=== PATIENT | male | born 1950 | race Caucasian/White ===

== ENCOUNTER 2019-05-11 12:12 | Outpatient (CLI) | payer MEDICARE, SELFPAY ==
--- NOTE | ~2019-05-11 | US_ITS ---
EXAMINATION: US venous doppler [facility] DATE: 05/11/2019 12:54 INDICATION: Left lower limb swelling. TECHNIQUE: Grayscale ultrasound images without and with compression and Doppler ultrasound images of the left lower extremity veins were obtained. COMPARISON: None. FINDINGS: The visualized portions of left common femoral vein, profunda (deep) femoral vein, femoral vein, popl iteal vein, peroneal veins, posterior tibial veins, and greater saphenous vein outflow are patent. IMPRESSION: 1. No deep venous thrombosis. Reviewed, dictated and finalized at location A.
== END 2019-05-11 12:13 | disposition home or self-care (01) ==
LOC: ANHIMG 12:22
PROVIDERS: PCP Nurse Practitioner Family; Visit Provider Nurse Practitioner Family
DX: M79.605 Pain in left leg (principal)
CPT/HCPCS: 93971

== ENCOUNTER 2019-05-17 08:52 | Outpatient (CLI) | payer MEDICARE, SELFPAY ==
--- NOTE | ~2019-05-17 | US_ITS ---
EXAMINATION: US venous doppler [facility] EXAM DATE: 05/17/2019 09:30 INDICATION: Left foot edema. TECHNIQUE: Multiple grayscale, color flow and Doppler images of the left lower extremity deep venous system were obtained and reviewed. There is no prior study for comparison. FINDINGS: The left common femoral, femoral and profunda veins demonstrate normal color flow, respirat ory variation, augmentation and compressibility. Compressibility, color flow confirmed within the le ft popliteal, posterior tibial, peroneal, and greater saphenous veins. IMPRESSION: 1. No left lower extremity deep venous thrombosis. Reviewed, dictated and finalized at location A.
--- NOTE | ~2019-05-17 | US_ITS ---
EXAMINATION: US art doppler w jan [facility] EXAM DATE: 05/17/2019 11:15 INDICATION: Discoloration to left lower extremity. Left leg swelling. TECHNIQUE: Segmental pressures and plethysmographic and Doppler waveforms of the brachial and lower e xtremity arteries were obtained. There is no prior study for comparison. FINDINGS: Right and left brachial artery pressures of 129 mm Hg and 129 mm Hg, respectively, are concordant (no rmal difference <= 30 mmHg). The right and left thigh-brachial pressure indices are 1.03, 1.20, resp ectively (normal > 1.2). RIGHT LEG: The ankle-brachial index (JHONNY) is 0.95 (normal >= 0.9-1). The great toe-brachial index (TBI) is 0.78 (normal >= 0.65). The lower extremity ratios, segmental pressure gradients as follows; Proximal superficial femoral artery:- 1.03 (133 mmHg). Distal superficial femoral artery: ----- Could not obtain ( mmHg). Popliteal: 1.23 (159 mmHg). Dorsalis pedis: 0.95 (123 mmHg). Posterior tibial: 0.95 (123 mmHg). (Normal gradients <= 20-30 mmHg between adjacent levels on the same leg or the same levels on the two legs). Arterial waveforms are biphasic through popliteal, monophas ic below. LEFT LEG: The ankle-brachial index (JHONNY) is 0.83 (normal >= 0.9-1). The great toe-brachial index (TBI) is 0.61 (normal >= 0.65). The lower extremity ratios, segmental pressure gradients as follows; Proximal superficial femoral artery:- 1.20 (155 mmHg). Distal superficial femoral artery: ----- 1.29 (166 mmHg). Popliteal: 0.99 (128 mmHg). Dorsalis pedis: 0.83 (107 mmHg). Posterior tibial: 0.77 (99 mmHg). (Normal gradients <= 20-30 mmHg between adjacent levels on the same leg or the same levels on the two legs). Arterial waveforms are biphasic through popliteal, monophas ic below. IMPRESSION: 1. Right ankle-brachial index 0.95, normal. 2. Left ankle-brachial index 0.83, mildly decreased. 3. Segmental pressures as above. Reviewed, dictated and finalized at location A.
== END 2019-05-17 08:53 | disposition home or self-care (01) ==
PROVIDERS: PCP Nurse Practitioner Family; Visit Provider Nurse Practitioner Family
DX: I73.9 Peripheral vascular disease, unspecified (principal); M79.89 Other specified soft tissue disorders
CPT/HCPCS: 93923; 93971

== ENCOUNTER 2019-10-01 07:22 | Outpatient (CLI) | payer MEDICARE, SELFPAY ==
--- NOTE | ~2019-10-01 | MR_ITS ---
EXAMINATION: MR brain/brain stem wo con EXAM DATE: 10/01/2019 08:03 INDICATION: Memory loss. TECHNIQUE: Magnetic resonance imaging (MRI) of the brain/brain stem obtained without contrast. Sagitt al T1, axial diffusion, gradient echo (T2*), T1, T2, FLAIR sequences obtained. There is no prior st udy for comparison. FINDINGS: There is CSF signal intensity cystic space overlying the right temporal lobe. There is smal l amount of increased T2 signal intensity within the underlying right temporal lobe. This is most lik abram chronic or congenital finding, could be arachnoid cyst, small amount of right temporal encephalom alacia. There is mild to moderate microangiopathy and cerebral atrophy. No acute infarction, extra-ax ial collection, brain mass or acute intracranial hemorrhage. No obstructive hydrocephalus. Orbits and soft tissues are unremarkable. Bilateral cataract surgery. Mild ethmoid mucoperiosteal thickening. IMPRESSION: 1. 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 2. Mild to moderate chronic age related findings. Reviewed, dictated and finalized at location A. IMPRESSION: 1. 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 2. Mild to moderate chronic age related findings.
== END 2019-10-01 07:23 | disposition home or self-care (01) ==
LOC: ANHIMG 07:28
PROVIDERS: PCP Nurse Practitioner Family; Visit Provider Psychiatry & Neurology Neurology
DX: R41.3 Other amnesia (principal)
CPT/HCPCS: 70551

== ENCOUNTER 2019-10-23 10:24 | Outpatient (CLI) | payer MEDICARE, SELFPAY ==
--- NOTE | 2019-10-23 11:30 | NEURO_ITS ---
TEST: ELECTROENCEPHALOGRAM DIAGNOSIS: DEMENTIA PATIENT NUMBER: [id number] EEG NUMBER: [id number] RECORDING DATE: 10/23/19 CONDITION OF RECORDING: Awake and drowsy EEG DESCRIPTION: Basic resting occipital frequency consists of moderate amount of fairly well organized low voltage 7-8hz alpha and theta activity mixed with low voltage 15-18hz beta. During drowsiness low voltage beta activity is seen diffusely mixed with waxing and waning posterior alpha and theta activity. Photic stimulation produced normal drive. Nonparoxysmal. Nonfocal. Nonlateralizing. IMPRESSION: No significant abnormalities noted; considering the excessive amount of theta activity clinical correlation recommended as this abnormality could be suggestive of underlying organic or metabolic encephalopathy or the neurodegenerative process. [facility]
== END 2019-10-23 10:25 | disposition home or self-care (01) ==
PROVIDERS: PCP Nurse Practitioner Family; Visit Provider Psychiatry & Neurology Neurology
DX: F03.90 Unspecified dementia, unspecified severity, without behavioral disturbance, psychotic disturbance, mood disturbance, and anxiety (principal)
CPT/HCPCS: 95816

== ENCOUNTER 2024-01-25 01:14 | Day surgery (SDC) | payer MEDICARE, SELFPAY ==
[2024-01-14 09:12] VITALS: BMI 33.2
[2024-01-25 08:00] VITALS: BP 120/74; PULSE 73; RESP 16; TEMP 36.2; O2SAT 95; BMI 32.5
[2024-01-25] MEDS: LACTATED RINGERS 1,000 ML 150 ML IV CONT (08:33)
--- NOTE | 2024-01-25 09:14 | WPDANESEPPF ---
Anes - Initial Pre Proc Eval Procedure: Operation Date: 01/25/24 09:30 Proposed Procedures p Colonoscopy - Mateo Anthony MD Date/Time: 01/25/24 09:14 Surgeon: Mateo Anthony MD Pre Op Diagnosis: fecal abnormalities Patient Data Age: 73 Gender: M Height: 1.83 m Weight: 109 kg Last Vital Signs Temp 97.2 F L 01/25/24 08:00 Pulse 73 01/25/24 08:00 Resp 16 01/25/24 08:00 BP 120/74 01/25/24 08:00 Pulse Ox 95 01/25/24 08:00 O2 Del Method Room Air 01/25/24 08:00 Allergies Allergy/AdvReac Type Severity Reaction Status Date / Time No Known Allergies Allergy Verified 01/25/24 08:17 Home Medications Medication Instructions Recorded Confirmed Type atorvastatin 40 mg tablet 40 mg PO DAILY 02/06/21 01/25/24 History fluticasone fur. 100 mcg-umeclid 1 inh inhalation DAILY 02/06/21 01/25/24 History 62.5 mcg-vilant 25 mcg inhalat.powder (Trelegy Ellipta) guaifenesin 600 mg tablet, 600 mg PO Q12H 02/06/21 01/25/24 History extended release 12 hr (Mucinex) multivitamin (Daily Multi-Vitamin 1 tablet PO DAILY 02/06/21 01/25/24 History tablet) aspirin 81 mg tablet,delayed 81 mg PO DAILY 02/09/23 01/25/24 History release clopidogrel 75 mg tablet 75 mg PO DAILY 02/09/23 01/25/24 History donepezil 5 mg tablet See Rx Instructions .Route 07/07/23 01/25/24 Rx .COMPLEX #90 tabs Results Review: All pre-operative results and documents have been reviewed as part of the pre-operative evaluation. [facility] Surgical History Surgical History H/O right heart catheterization Family History Family History Other Diabetes mellitus Family history of arthritis Hypertension Social History Social History (Updated 02/09/23 @ 14:03 by CHRIS Lopez) Smoking status: Former smoker Tobacco type: cigarettes Alcohol intake: current Drinks per week: 5 Alcohol use details: beer twice a week Substance use: never Substance use type: does not use Lack of Transportation: No Lack of Food: Never True Current Housing: I Have Housing Concerned About Future Housing: No Difficulty Paying Gas/Electric Bills: No Difficulty Paying for Meds: No Currently Unemployed: No Education: High School Diploma/GED Difficulty w/ Childcare or Family Care: No Living arrangements: with family Spiritual care concerns: No Anes - Eval Final PreProcedure Day of Procedure 01/25/24 09:14 Patient weight: obese Airway: Mallampati scale class II Results Review: All pre-operative results and documents have been reviewed as part of the pre-operative evaluation. Informed Consent: The patient's anesthetic plan and its attendant risks and benefits were discussed with the patient/family/POA. Questions were solicited and answers provided to the satisfaction of the patient/family/POA.
--- NOTE | 2024-01-25 09:31 | P.HP_ITS ---
H&P: HPI History of Present Illness Date/Time: 01/25/24 09:31 Chief Complaint: History of colon polyps Narrative: The patient has a history of colonic polyps, the last colonoscopy was 6 years ago Review of Systems Review of Systems: All systems reviewed & are unremarkable except as noted in HPI and below [facility] Surgical History Surgical History H/O right heart catheterization Family History Family History Other Diabetes mellitus Family history of arthritis Hypertension Social History Social History (Updated 02/09/23 @ 14:03 by CHRIS Lopez) Smoking status: Former smoker Tobacco type: cigarettes Alcohol intake: current Drinks per week: 5 Alcohol use details: beer twice a week Substance use: never Substance use type: does not use Lack of Transportation: No Lack of Food: Never True Current Housing: I Have Housing Concerned About Future Housing: No Difficulty Paying Gas/Electric Bills: No Difficulty Paying for Meds: No Currently Unemployed: No Education: High School Diploma/GED Difficulty w/ Childcare or Family Care: No Living arrangements: with family Spiritual care concerns: No Meds Home Medications and Allergies Home Medications Medication Instructions Recorded Confirmed Type atorvastatin 40 mg tablet 40 mg PO DAILY 02/06/21 01/25/24 History fluticasone fur. 100 mcg-umeclid 1 inh inhalation DAILY 02/06/21 01/25/24 History 62.5 mcg-vilant 25 mcg inhalat.powder (Trelegy Ellipta) guaifenesin 600 mg tablet, 600 mg PO Q12H 02/06/21 01/25/24 History extended release 12 hr (Mucinex) multivitamin (Daily Multi-Vitamin 1 tablet PO DAILY 02/06/21 01/25/24 History tablet) aspirin 81 mg tablet,delayed 81 mg PO DAILY 02/09/23 01/25/24 History release clopidogrel 75 mg tablet 75 mg PO DAILY 02/09/23 01/25/24 History donepezil 5 mg tablet See Rx Instructions .Route 07/07/23 01/25/24 Rx .COMPLEX #90 tabs Allergies Allergy/AdvReac Type Severity Reaction Status Date / Time No Known Allergies Allergy Verified 01/25/24 08:17 Vital Signs Vital Signs - 24 hr 01/25/24 08:00 Temperature 97.2 F L Pulse Rate 73 Respiratory Rate 16 Blood Pressure 120/74 Pulse Oximetry 95 Oxygen Delivery Room Air Exam Const: General: cooperative and healthy appearing Resp: Effort & Inspection: normal respiratory effort and able to speak in complete sentences Auscultation: clear to auscultation bilaterally Cardio: Rate: regular rate Rhythm: regular rhythm GI: Inspection: normal to inspection GI Palp: No No hepatosplenomegaly present Auscultation: normal bowel sounds Rectal Exam: deferred Skin: General skin exam: normal color Psych: Appearance: grossly normal Mental Status: mental status grossly normal Assessment and Plan Assessment and plan (1) History of colonic polyps: Code(s): Z86.0100 - Personal history of colon polyps, unspecified Status: Acute Assessment and Plan: The patient is deemed a good candidate for the procedure. Consent signed. Will proceed.
[2024-01-25 10:17] VITALS: BP 115/55; PULSE 60; RESP 15; O2SAT 99
[2024-01-25 10:27] VITALS: BP 121/61; PULSE 68; RESP 17; O2SAT 99
--- NOTE | 2024-01-25 10:27 | P.HP_ITS ---
H&P: HPI History of Present Illness Date/Time: 01/25/24 10:27 Chief Complaint: see prior H and P Narrative: Review of Systems Review of Systems: All systems reviewed & are unremarkable except as noted in HPI and below REPLACED BY [facility] Surgical History Surgical History H/O right heart catheterization Family History Family History Other Diabetes mellitus Family history of arthritis Hypertension Social History Social History (Updated 02/09/23 @ 14:03 by CHRIS Lopez) Smoking status: Former smoker Tobacco type: cigarettes Alcohol intake: current Drinks per week: 5 Alcohol use details: beer twice a week Substance use: never Substance use type: does not use Lack of Transportation: No Lack of Food: Never True Current Housing: I Have Housing Concerned About Future Housing: No Difficulty Paying Gas/Electric Bills: No Difficulty Paying for Meds: No Currently Unemployed: No Education: High School Diploma/GED Difficulty w/ Childcare or Family Care: No Living arrangements: with family Spiritual care concerns: No Meds Home Medications and Allergies Home Medications Medication Instructions Recorded Confirmed Type atorvastatin 40 mg tablet 40 mg PO DAILY 02/06/21 01/25/24 History fluticasone fur. 100 mcg-umeclid 1 inh inhalation DAILY 02/06/21 01/25/24 History 62.5 mcg-vilant 25 mcg inhalat.powder (Trelegy Ellipta) guaifenesin 600 mg tablet, 600 mg PO Q12H 02/06/21 01/25/24 History extended release 12 hr (Mucinex) multivitamin (Daily Multi-Vitamin 1 tablet PO DAILY 02/06/21 01/25/24 History tablet) aspirin 81 mg tablet,delayed 81 mg PO DAILY 02/09/23 01/25/24 History release clopidogrel 75 mg tablet 75 mg PO DAILY 02/09/23 01/25/24 History donepezil 5 mg tablet See Rx Instructions .Route 07/07/23 01/25/24 Rx .COMPLEX #90 tabs Allergies Allergy/AdvReac Type Severity Reaction Status Date / Time No Known Allergies Allergy Verified 01/25/24 08:17 Vital Signs Vital Signs - 24 hr 01/25/24 08:00 01/25/24 10:17 01/25/24 10:27 Temperature 97.2 F L Pulse Rate 73 60 68 Respiratory Rate 16 15 17 Blood Pressure 120/74 115/55 L 121/61 Pulse Oximetry 95 99 99 Oxygen Delivery Room Air Room Air Room Air Exam Const: General: cooperative and healthy appearing Resp: Effort & Inspection: normal respiratory effort and able to speak in complete sentences Auscultation: clear to auscultation bilaterally Cardio: Rate: regular rate Rhythm: regular rhythm GI: Inspection: normal to inspection GI Palp: No No hepatosplenomegaly present Auscultation: normal bowel sounds Rectal Exam: deferred Skin: General skin exam: normal color Psych: Appearance: grossly normal Mental Status: mental status grossly normal
[2024-01-25 10:37] VITALS: BP 126/85; PULSE 62; RESP 16; O2SAT 100
== END 2024-01-25 11:00 | disposition home or self-care (01) ==
PROVIDERS: Visit Provider Internal Medicine Gastroenterology
PROC: 0DJD8ZZ Inspection of Lower Intestinal Tract, Via Natural or Artificial Opening Endoscopic (ICD-10-PCS; CPT 45378; principal; 2024-01-25 09:30)
DX: Z12.11 Encounter for screening for malignant neoplasm of colon (principal); D12.5 Benign neoplasm of sigmoid colon; D12.3 Benign neoplasm of transverse colon; D12.2 Benign neoplasm of ascending colon; K57.30 Diverticulosis of large intestine without perforation or abscess without bleeding; E66.9 Obesity, unspecified; Z68.32 Body mass index [BMI] 32.0-32.9, adult; Z79.51 Long term (current) use of inhaled steroids; Z79.82 Long term (current) use of aspirin; Z79.02 Long term (current) use of antithrombotics/antiplatelets; Z98.890 Other specified postprocedural states; Z98.61 Coronary angioplasty status; Z87.891 Personal history of nicotine dependence
CPT/HCPCS: 45385; 45380; 45381; 88305; J2003; J2704; J7120

== ENCOUNTER 2024-02-10 09:35 | Outpatient (CLI) | payer MEDICARE, SELFPAY ==
[2024-02-10 11:05] LABS: Basophils Absolute Auto 0.1 K/mm3 (0.0-0.1); Basophils Percent Auto 0.7 % (0.2-1.2); Eosinophils Absolute Auto 0.3 K/mm3 (0-0.3); Eosinophils Percent Auto 3.9 % (0-4.4); Hematocrit 44.1 % (42.0-52.0); Hemoglobin 13.8 g/dL (14.0-18.0); Immature Granulocyte Absolute 0.03 K/mm3 (0.00-0.031); Immature Granulocyte Percent A 0.4 % (0-0.5); Lymphocytes Absolute Auto 1.82 K/mm3 (0.9-3.2); Lymphocytes Percent Auto 26.5 % (18.3-44.2); Mean Corpuscular HGB Conc 31.3 g/dl (32-36); Mean Corpuscular Hemoglobin 32.2 pg (26-34); Mean Platelet Volume 9.9 fl (7.4-10.4); Monocytes Absolute Auto 0.8 K/mm3 (0.1-0.6); Monocytes Percent Auto 11.5 % (2.6-8.5); Neutrophils Absolute Auto 3.9 K/mm3 (1.3-6.7); Platelet Count Result 207 k/mm3 (150-375); Red Blood Count 4.28 M/mm3 (4.6-6.20); Red Cell Distribution Width 13.9 % (11.5-14.5); White Blood Count 6.9 K/mm3 (4.5-10.0)
== END 2024-02-10 09:36 | disposition home or self-care (01) ==
PROVIDERS: Visit Provider Internal Medicine Gastroenterology
DX: Z12.11 Encounter for screening for malignant neoplasm of colon (principal); Z86.0100 Personal history of colon polyps, unspecified
CPT/HCPCS: 36415; 85025

== ENCOUNTER 2024-08-01 08:44 | Outpatient (CLI) | payer MEDICARE, SELFPAY ==
--- NOTE | ~2024-08-01 | US_ITS ---
EXAMINATION: US arterial duplex LE DATE: 08/01/2024 09:45 INDICATION: Peripheral arterial occlusive disease to the left lower limb with resting pain TECHNIQUE: Multiple grayscale and Doppler ultrasound images of the arteries of the bilateral lower li mbs were obtained. COMPARISON: None FINDINGS: There is some shadowing calcified atherosclerotic plaque at the right common femoral and popliteal ar teries without hemodynamically significant stenosis. There are normal triphasic waveforms with brisk systolic upstrokes at the right common femoral, profunda femoral, superficial femoral and popliteal, posterior tibial, anterior tibial and peroneal arteries. Biphasic waveform with brisk systolic upstro ke at the right dorsalis pedis artery. There is some additional shadowing calcified atherosclerotic plaque also without hemodynamically sign ificant stenosis at the left common femoral, popliteal and posterior tibial arteries. There are yaritza l triphasic waveforms with brisk systolic upstrokes at the left common femoral, profunda femoral, sup erficial femoral, popliteal, posterior tibial and peroneal arteries. Biphasic waveforms with brisk sy stolic upstrokes at the left anterior tibial and dorsalis pedis arteries with relatively prominent as ymmetric decreased peak systolic velocities in both arteries relative to the contralateral right ante rior tibial and dorsalis pedis arteries as well as the posterior tibial and peroneal arteries at the left calf which suggests a possible nonvisualized more proximal stenosis. IMPRESSION: 1. Scattered atherosclerotic plaque with no evident hemodynamically significant stenosis in the right lower limb. 2. Scattered atherosclerotic plaque in the left lower limb with relatively decreased peak systolic ve locities in the left anterior tibial and dorsalis pedis arteries which despite the retained brisk sys tolic upstroke to the biphasic waveforms at both arteries suggests a possible more proximal flow-limi ting stenosis. Reviewed, dictated and finalized at location [facility]. IMPRESSION: 1. Scattered atherosclerotic plaque with no evident hemodynamically significant stenosis in the right lower limb. 2. Scattered atherosclerotic plaque in the left lower limb with relatively decr eased peak systolic velocities in the left anterior tibial and dorsalis pedis a rteries which despite the retained brisk systolic upstroke to the biphasic wave forms at both arteries suggests a possible more proximal flow-limiting stenosis .
--- OUTSIDE RECORDS SUMMARY | 2024-08-01 08:55 | XMS_ITS | Clinical Summary ---
Author Organization [facility] Address [address] [place] [address] Care Team Providers Care Water System Operator Name Role Phone Viky Mana Primary Care Provider [phone] Source Comments [facility],non-owned Affiliates and Associated Physician Practices is amultiple site organization consisting of ambulatory clinics and hospital sitesin [place], [place], [place] and [place]. This disclosure is being madepursuant to the Care Everywhere program and may not contain all information available regarding this patient. Last updated 17.[facility] Allergies No known active allergies Medications * Be aware that medications may not be up to date on this document. Alwaysverify current medications with the patient. clopidogrel (plaVIX) 75 MG tablet Take 1 (one) tablet by mouth once daily 4 Active Trelegy Ellipta 200-62.5-25 MCG/ACT inhaler INHALE ONE PUFF ONCE DAILY 4 Active guaiFENesin (Mucus Relief Chest Congestion) 400 MG tablet Mucus Relief 400 mg tablet Active donepezil (Aricept) 5 MG tablet Take 1 (one) tablet by mouth once daily Active cyanocobalamin (Vitamin B-12) 1000 MCG tablet Take 1 (one) tablet by mouth once daily Active aspirin (Aspirin) 81 MG chew tablet Take 1 (one) tablet by mouth once daily Active Boswellia-Gluc osamine-Vit D (OSTEO BI-FLEX ONE PER DAY PO) Active albuterol HFA (Proventil; Ventolin; Proair) 108 (90 Base) MCG/ACT inhaler INHALE 2 PUFFS BY MOUTH EVERY SIX HOURS NEEDED Active albuterol (Proventil;Rufus tolin) (2.5 MG/3ML) 0.083% nebulizer solution INHALE 1 VIAL EVERY 4-6 HRS NEEDED 4 Active atorvastatin (Lipitor) 40 MG tablet atorvastatin 40 mg tablet 3 Active Glucosamine HCl 500 MG glucosamine HCl unspecified unspecified Active Multiple Vitamin (Multi-Vitamin s) TABS multivitamin tablet Active clobetasol (Temovate) 0.05 % solution Apply to affected area at bedtime 5 Active acetaminophen (Tylenol) 500 MG tablet Take 2 (two) tablets by mouth every 6 hours as needed for Fever or Pain Maximum allowable Acetaminophen amount = 4 Grams (4000 mg) / 24 hours. 30 tablet 5 Active oxyCODONE, immediate release, (Roxicodone) 5 MG tabletIndicati ons:High grade dysplasia in colonic adenoma Take 1 (one) tablet by mouth every 4 hours as needed 8 tablet 05/26/2024 2:36 PM CDT 5 Active Additional Information Patient not taking.Reason: Patient adjusted, Reported on 06/15/2024 escitalopram (Lexapro) 10 MG tablet Take 1 (one) tablet by mouth once daily 5 Active memantine (Namenda Titration Stephon) kit TAKE DIRECTED PER PACKAGE 5 Active Active Problems Problem Noted Date Diagnosed Date High grade dysplasia in colonic adenoma 05/25/19 25 Encounters Date Type Department Care Team Description 06/15/2024 12:00 PM CDT Office Visit [facility] - General Surgery [address] [facility] [facility] [place] [address] Becca Miles MD Malignant neoplasm of ascending colon (HCC) (Primary Dx) 06/15/2024 Travel 06/01/2024 Travel 05/24/2024 9:01 AM CDT Anesthesia Event [facility] [address] [place] [address] Ashley Saucedo MD Hunsaker, Madelyn, MD 05/24/2024 8:45 AM CDT - 05/24/2024 12:57 PM CDT Surgery [facility] [address] [place] [address] Becca Miles MD Robotic ascending colectomy 05/24/2024 7:14 AM CDT - 05/26/2024 5:34 PM CDT Hospital Encounter [facility] 7S ACUTE [address] [place] [address] Becca Miles MD Surgery General Discharge Disposition: [place] [facility] [place] 05/17/2024 Orders Only [facility] - General Surgery [address] [facility] [place] [address] Becca Miles MD Tubulovillous adenoma of colon 05/04/2024 12:47 PM GLASS TUBE BENDER - 05/04/2024 11:59 PM [employer]ER Hospital Encounter [facility] LAB OP DRAW STATION [address] [place] [address] Becca Miles MD Discharge Disposition: Home or Self Care 05/04/2024 11:48 AM GLASS TUBE BENDER - 05/04/2024 12:46 PM [employer] T[employer] BENDER Hospital Encounter [facility] PAT [address] [place] [address] Becca Miles MD Discharge Disposition: Home or Self Care 05/04/2024 10:18 AM GLASS TUBE BENDER - 05/04/2024 11:47 AM GLASS TUBE BENDER Hospital Encounter [facility] CAT SCAN [address] [place] [address] Becca Miles MD Discharge Disposition: Home or Self Care 05/04/2024 Travel from Last 3 Months Social History Tobacco Use Types Packs/Day Years Used Date Smoking Tobacco: Former Cigarettes Q uit: 2017 Smokeless Tobacco: Never Tobacco Cessation:Counseling Given: No Alcohol Use Standard Drinks/Week Comments Yes 24 (1 standard drink = 0.6 oz pu re alcohol) AUDIT-C Answer Date Recorded Q1: How often do you have a drink containing alc ohol? 2-3 times a week 05/24/2024 Q2: How many drinks containi ng alcohol do you have on a typical day when you are drinking? 10 or more 05/24/2024 Q3: How often do you have si x or more drinks on one occasion? Weekly 05/24/2024 Overall Financial Resource Strain (CARDIA) Answe r Date Recorded How hard is it for you to pa y for the very basics like food, housing, medical care, and heating? Not very hard 05/24/2024 [facility] [place] [facility] Occupat ional [facility] - Occupational Stress Questionnaire Answer Date Recorded Do you feel stress - tense, restless, nervous, or anxious, or unable to sleep at night because your mind is troubled all the time - these days? Only a little 05/24/2024 Hunger Vital Sign Answer Date Recorded Within the past 12 months, y ou worried that your food would run out before you got the money to buy more. Never true 05/25/19 25 Within the past 12 months, t he food you bought just didn't last and you didn't have money to get more. Never true 05/24/2024 PRAPARE - Transportation Answer Date Re corded In the past 12 months, has l ack of transportation kept you from medical appointments or from getting medications? No 04/30 In the past 12 months, has l ack of transportation kept you from meetings, work, or from getting things needed for daily living? No 05/24/2024 Housing Stability Vital Sign Answer Sagar e Recorded In the last 12 months, was t here a time when you were not able to pay the mortgage or rent on time? No 05/24/2024 In the past 12 months, how m any times have you moved where you were living? 0 05/24/2024 At any time in the past 12 m [facility], were you homeless or living in a alf (including now)? No 05/24/2024 Sex and Gender Information Value Date Recorded Sex Assigned at Not on file Legal Sex Male 12:17 PM GLASS TUBE BENDER Gender Identity Not on file Sexual Orientation Not on file Last Filed Vital Signs Vital Sign Reading Time Taken Comments Blood Pressure 112/73 06/15/2024 11:40 AM CDT Pulse 73 06/15/2024 11:40 AM CDT Temperature 36.7 C (98 F) 06/15/2024 11:40 AM CDT Respiratory Rate 20 05/26/2024 4:04 PM CDT Oxygen Saturation 92% 06/15/2024 11:40 AM CDT Inhaled Oxygen Concentration 21% 05/26/2024 8 :50 AM CDT Weight 113.4 kg (250 lb) 06/15/2024 11:40 AM CDT Height 182.9 cm (6') 06/15/2024 11:40 AM CDT Body Mass Index 33.91 06/15/2024 11:40 AM CDT Plan of Treatment Upcoming Encounters Date Type Department Care Team (Latest Contact Info) Description 09/06/2024 10:00 AM CDT Hospital Encounter [facility] ENDOSCOPY [address] [place] [phone] Nigel Holloway MD [address] [place] [address] [address] [place] [address] Surgery General 09/06/2024 10:00 AM CDT - 09/06/2024 11:00 AM CDT Surgery [facility] ENDOSCOPY [address] [place] [phone] Nigel Holloway MD [address] [place] [address] [address] [place] [phone] COLONOSCOPY DIAGNOSTIC 09/14/2024 12:00 PM CDT Office Visit [facility] - General Surgery [address] [place] [address], [place] [phone] Becca Miles MD [address] [place] [address] [address] [place] [phone] Scheduled Procedures Name Priority Associated Diagnoses Date/Ti me COLONOSCOPY DIAGNOSTIC Polyp of colon, unspecified part of colon, unspecified type 09/06/2024 10:00 AM CDT Health Maintenance Due Date Last Done Comments CT COLONOGRAPHY - COLON CA SCREENING 1949 FIT - COLON CA SCREENING 1950 FLEX SIG - COLON CA SCREENING 1950 MEDICARE AWV 12 MONTHS 1949 HEPATITIS C SCREENING 06/30/1967 DTAP/TDAP/TD VACCINES (1 - Tdap) 1968 PNEUMOCOCCAL VACCINE 50+ (1 of 1 - PCV) 07/05/1999 ZOSTER VACCINE (1 of 2) 07/05/1999 COVID-19 VACCINE (2023-2 5 season) 2023 DEPRESSION SCREENING 03/01/2024 Respiratory Syncytial Virus (RSV) Vaccine Pt: or over 60 yrs (1 - 1-dose 75+ series) 2024 INFLUENZA VACCINE (Season Ended) 2024 COLOGUARD (AGES 45-75) - COL ON CA SCREENING 11/20/2026 11/21/2023 COLON MONITORING 02/27/2034 02/28/2024, 02/28/2024 COLONOSCOPY - COLON CA SCREENING 02/27/2034 02/28/2024, 02/28/2024 Colorectal Cancer Screening 02/27/2034 HEPATITIS B VACCINE Aged Out No longe r eligible based on patient's age to complete this topic HIB VACCINE Aged Out No longer eligi ble based on patient's age to complete this topic HPV VACCINE Aged Out No longer eligi ble based on patient's age to complete this topic MENINGOCOCCAL (Group B) VACCINE SHARED DECISION-MAKING Aged Out No longer eligible based on patient's age to complete this topic MENINGOCOCCAL GROUPS A/C/Y/W VACCINE Aged Out No longer eligible b ased on patient's age to complete this topic Procedures Procedure Name Priority Date/Time Associated Diagnosis Comments CBC W AUTO DIFFERENTIAL AM Draw 05/26/2024 4:18 PM CDT BASIC METABOLIC PANEL (CALCIUM TOTAL) AM Draw 05/26/2024 6:23 AM CDT MAGNESIUM BLOOD Routine 05/26/2024 6:23 AM CDT CBC W AUTO DIFFERENTIAL AM Draw 05/26/2024 5:34 AM CDT PHOSPHORUS BLOOD Routine 05/26/2024 5:34 AM CDT PHOSPHORUS BLOOD Routine 05/25/2024 4:41 AM CDT MAGNESIUM BLOOD AM Draw 05/25/2024 4:41 AM CDT BASIC METABOLIC PANEL (CALCIUM TOTAL) AM Draw 05/25/2024 4:41 AM CDT CBC W AUTO DIFFERENTIAL AM Draw 05/25/2024 4:41 AM CDT PATHOLOGY TISSUE Routine 05/24/2024 11:5 3 AM CDT Tubulovillous adenoma of colon ENDOTRACHEAL TUBE NOTE Routine 05/24/2024 9:45 AM CDT MS CLOSE CHEST AFTER DRAINAGE 05/24/2024 8:31 AM CDT Tubulovillous adenoma of colon Case Notes Reviewed 05/17 / Resident to Assist Special Needs ERAS MS LAPARSCOPIC PARTIAL COLECTOMY 05/24/2024 8:31 AM CDT Tubulovillous adenoma of colon Case Notes Reviewed 05/17 / Resident to Assist Special Needs ERAS MS LAPARSCOPIC PARTIAL COLECTOMY 05/24/2024 8:31 AM CDT Tubulovillous adenoma of colon Case Notes Reviewed 05/17 / Resident to Assist Special Needs ERAS TYPE + SCREEN PANEL STAT 05/24/2024 8 :02 AM CDT Polyp of ascending colon, unspecified type TYPE + SCREEN PANEL Routine 05/04/2024 1 :16 PM [employer] TUBE BENDER Polyp of ascending colon, unspecified type BASIC METABOLIC PANEL (CALCIUM TOTAL) Routine 05/04/2024 1:16 PM [employer] TUBE BENDER Polyp of ascending colon, unspecified type CBC W/O DIFFERENTIAL Routine 05/04/2024 1:16 PM GLASS TUBE BENDER Polyp of ascending colon, unspecified type CT ABDOMEN PELVIS W CONTRAST Routine 05/04/2024 10:47 AM GL[employer] TUBE BENDER Tubulovillous adenoma of colon ENDOSCOPY, COLON, DIAGNOSTIC Routine 02/28/2024 1:37 PM GLASS TUBE BENDER from Last 3 Months or Most Recently Relevant to Health Maintenance Results * (ABNORMAL) CBC W AUTO DIFFERENTIAL (05/26/2024 4:18 PM CDT) Only the most recent of3 resultswithin the time period is included. WBC 10.4 4.0 - 10.7 x10E9/L 05/26/2024 4:35 PM [facility] RBC Count 3.93(L) 4.30 - 5.80 x10E12/L 05/26/2024 4:35 PM [facility] Hemoglobin 12.3(L) 13.3 - 17.5 g/dL 05/26/2024 4:35 PM [facility] Hematocrit 38.5(L) 38.7 - 51.1 % 05/26/2024 4:35 PM [facility] MCV 98.0 80.0 - 98.0 fL 05/26/2024 4:35 PM [facility] MCH 31.3 26.7 - 33.6 pg 05/26/2024 4:35 PM [facility] MCHC 31.9 31.7 - 36.3 g/dL 05/26/2024 4:35 PM [facility] RDW-CV 14.3 11.3 - 14.8 % 05/26/2024 4:35 PM [facility] Platelet Count 185 150 - 420 x10E9/L 05/26/2024 4:35 PM [facility] MPV 10.2 7.8 - 11.4 fL 05/26/2024 4:35 PM [facility] Neutrophil % 60.7 41.0 - 74.0 % 05/26/2024 4:35 PM [facility] Lymphocyte % 21.4 17.0 - 47.0 % 05/26/2024 4:35 PM [facility] Monocyte % 13.0(H) 3.0 - 11.0 % 05/26/2024 4:35 PM [facility] Eosinophil % 4.1 0.0 - 7.0 % 05/26/2024 4:35 PM [facility] Basophil % 0.6 0.0 - 1.6 % 05/26/2024 4:35 PM [facility] Immature Granulocytes % 0.2 0.0 - 1.0 % 05/26/2024 4:35 PM [facility] Neutrophil Absolute 6.29 1.60 - 7.50 x10E9/L 05/26/2024 4:35 PM [facility] Lymphocyte Absolute 2.21 1.00 - 4.40 x10E9/L 05/26/2024 4:35 PM [facility] Monocyte Absolute 1.35(H) 0.15 - 1.00 x10E9/L 05/26/2024 4:35 PM [facility] Eosinophil Absolute 0.42 0.00 - 0.60 x10E9/L 05/26/2024 4:35 PM [facility] Basophil Absolute 0.06 0.00 - 0.13 x10E9/L 05/26/2024 4:35 PM [facility] Blood BLOOD SPECIMEN / Unknown Lab Venipuncture / Unknown 05/26/2024 4:18 PM CDT 05/26/2024 4:30 PM CDT us Becca Miles MD LAB - HEMATOLOGY ORDERABLE S Final Result [facility] [address] [place] [address], [facility] [phone] * (ABNORMAL) BASIC METABOLIC PANEL (CALCIUM TOTAL) (05/26/2024 6:23 AM CDT) Only the most recent of3 resultswithin the time period is included. BUN 16 7 - 26 mg/dL 05/26/2024 7:04 AM [facility] Creatinine 0.84 0.71 - 1.16 mg/dL 05/26/2024 7:04 AM [facility] Sodium 144 136 - 145 mmol/L 05/26/2024 7:04 AM [facility] Potassium 4.0 3.5 - 4.5 mmol/L 05/26/2024 7:04 AM [facility] Chloride 112(H) 98 - 107 mmol/L 05/26/2024 7:04 AM [facility] CO2 26 22 - 29 mmol/L 05/26/2024 7:04 AM [facility] Glucose 106(H) 70 - 99 mg/dL 05/26/2024 7:04 AM T [facility] Calcium 8.8 8.4 - 10.2 mg/dL 05/26/2024 7:04 AM [facility] Anion Gap 6 6 - 16 05/26/2024 7:04 AM [facility] BUN/Creatinine Ratio 19 7 - 23 05/26/2024 7:04 AM [facility] Osmolality Calculated 300(H) 275 - 295 mOsm/kg 05/26/2024 7:04 AM [facility] eGFR by CKD-EPI >90 >=90 mL/min/1.7 3 m2 05/26/2024 7:04 AM [facility] Blood BLOOD SPECIMEN / Unknown Lab Venipuncture / Unknown 05/26/2024 6:23 AM CDT 05/26/2024 6:33 AM CDT us Becca Miles MD LAB - CHEMISTRY ORDERABLES Final Result Performing Organization Address City/[facility]/ZIP Co de Phone Number [address] [address], [facility] [phone] * MAGNESIUM BLOOD (05/26/2024 6:23 AM CDT) Only the most recent of2 resultswithin the time period is included. Magnesium 1.9 1.6 - 2.6 mg/dL 05/26/2024 7:04 AM T [facility] Blood BLOOD SPECIMEN / Unknown Lab Venipuncture / Unknown 05/26/2024 6:23 AM CDT 05/26/2024 6:33 AM CDT us Becca Miles MD LAB - CHEMISTRY ORDERABLES Final Result [address] [address], [facility] [phone] * PHOSPHORUS BLOOD (05/26/2024 5:34 AM CDT) Only the most recent of2 resultswithin the time period is included. Phosphorus 3.0 2.8 - 5.1 mg/dL 05/26/2024 6:10 AM CDT [facility] Blood BLOOD SPECIMEN / Unknown Venipuncture / Unknown 05/26/2024 5:34 AM CDT 05/26/2024 5:42 AM CDT us Becca Miles MD LAB - CHEMISTRY ORDERABLES Final Result Performing Organization Address [facility]/State/ZIP Co de Phone Number [facility] [address] [place] [address], [facility] [phone] * PATHOLOGY TISSUE (05/24/2024 11:53 AM CDT) Case Report Surgical Pathology Report Case: [id number] Authorizing Provider: Becca Miles MD Collected: 05/24/2024 11:53 AM Ordering Location: [facility] Received: 05/24/2024 01:25 PM Pathologist: Olga Finney MD Specimen: Colon Ascending, ASCENDING COLON 05/26/2024 2:55 PM CDT [facility] Final Diagnosis Large/small intestine, ascending colon, resection (A): - Tubular adenoma (5.5 cm) with multifocal high grade dysplasia and focal intramucosal carcinoma, 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 - Separate sessile serrated lesion/adenoma and multiple tubular adenomas involving the colon - Separate foci of fibrosis and reactive changes (biopsy site scars x2) without evidence of malignancy or residual adenoma - Appendix with no histopathologic abnormality - Terminal ileum with no histopathologic abnormality Lymph nodes, pericolonic, resection (A): - No evidence of malignancy in nineteen lymph nodes (0/19) 05/26/2024 2:55 PM CDT [facility] PATHOLOGY LAB at 1455 CDT Microscopic Description and Comment Histologic sections of the large flat lesion in the cecum (entirely submitted for histologic examination) show a laterally spreading tubular adenoma with multiple foci of high-grade dysplasia and even areas with complex architecture and invasion of the lamina propria and muscularis mucosae, consistent with focal intramucosal carcinoma. These foci are small and discontinuous, making an exact measurement difficult to ascertain. In some areas, the adenoma herniates into the underlying lymphoid tissue, and a small area of high-grade dysplasia/intramucosa l carcinoma does this as well, although no desmoplastic tissue response as an indicator of submucosal invasion is seen. As such, the tumor stage is considered pTis. There is no obvious lymphovascular space invasion, and none of the 19 pericolonic lymph nodes has metastatic tumor. Nearby but separate from this large tubular adenoma is a smaller sessile serrated lesion/adenoma, and scattered even smaller tubular adenomas (without high-grade dysplasia or intramucosal carcinoma) are also seen. Two distinct scarred areas were also found, consistent with prior piecemeal endomucosal resections, but residual adenoma is not seen associated with the scar sites. 05/26/2024 2:55 PM [facility] Clinical History The patient is a 73-year-old man with a cecal polyp and reducible umbilical hernia. Operative procedure: Robotic ascending colectomy and hernia repair 05/26/2024 2:55 PM T [facility] Gross Description The requisition and specimen(s) are identified with the patient's name, Virgilio Washington. Received in formalin, specimen A, is a right hemicolectomy consisting of terminal ileum (4.5 x 0.8 cm diameter), cecum (6.0 x 4.5 cm diameter), ascending colon (12.0 x 3.5 cm diameter), attached appendix (5.5 x 0.6 cm diameter) and abundant edematous attached mesentery up to 9.0 cm in thickness. The serosa is matos-pink focally hemorrhagic and edematous with dilated vasculature and ascending segment is predominantly obscured by creeping fat. Opening shows three scattered sessile polyps ranging from 0.2-0.6 cm; the closest polyp is 7.0 cm to terminal ileum margin and closest polyp is 5.5 cm to distal colon margin. Within the cecum are two flat irregular matos-white lesions; the smaller lesion (#1) is 1.0 x 0.8 and the larger lesion (#2) is 5.5 x 2.0 cm which are 1.0 cm apart (proximal to distal). The larger lesion extends anteriorly and proximally to the ileocecal valve and is 1.0 cm from the appendiceal orifice, 4.5 cm from the proximal terminal ileum margin, 4.5 cm from the mesenteric margin and 15.0 cm from the distal colon margin. Additionally are two firm, stellate biopsy sites in the cecum and ascending colon; the cecal biopsy site is 2.0 x 0.8 cm and is 3.5 cm from larger lesion, and the ascending biopsy site is 1.5 x 0.7 cm and is 5.5 cm to the distal colon margin. The remaining mucosa is matos-pink with normal folds. The appendiceal wall ranges from 0.1-0.3 cm with matos-pink edematous mucosa. The lumen is focally dilated containing green-brown purulent material. There are no gross lesions within the appendix. Within the mesentery are scattered matos-pink to matos-white lymph nodes ranging from 0.2-0.8 cm with matos-white smooth cut surface. There are no additional gross lesions. Batteryman sections are submitted as follows: A1-proximal terminal ileum margin, en face A2-distal colon margin, en face A3-mesenteric margin, en face A4-appendix, bisected tip, orifice and central cross-section [id number] #1, entire (A7 lesion #1 to lesion #2) [id number] #2, entire (A12 - V26-whew ileocecal valve) [id number] biopsy site [id number] colon biopsy site [id number] polyps, entire [id number]-[id number] lymph nodes , entire [id number]-pxfqvbs lymph node, serially sectioned IKD 05/26/2024 2:55 PM [facility] Pathologist Location at [facility] 05/26/2024 2:55 PM [facility] Disclaimer The performance characteristics of all immunohistochemical and indirect immunofluorescence stains (if any) cited in this report were determined by the Histopathology Laboratory of [facility]. Some of these tests were developed by our own laboratory and have not been cleared or approved by the US Food and Drug Administration. The FDA does not require this test to go through premarket FDA review. These tests are used for clinical purposes. They should not be regarded as investigational or for research. This laboratory is certified under the Clinical Laboratory Improvement Amendments (CLIA) as qualified to perform high complexity clinical laboratory testing. This case has been personally reviewed and interpreted by the attending (teaching) pathologist. 05/26/2024 2:55 PM [facility] Synoptic Report COLON AND RECTUM: Resection COLON AND RECTUM: RESECTION - All Specimens 8th Edition - Protocol posted: 08/18/2023 SPECIMEN Procedure: Right hemicolectomy TUMOR Tumor Site: Cecum Histologic Type: Adenocarcinoma Histologic Grade: G2, moderately differentiated Tumor Size: Cannot be determined: Microscopic discontinuous foci Tumor Extent: Invades lamina propria / muscularis mucosae (intramucosal carcinoma) Macroscopic Tumor Perforation: Not identified Lymphatic and / or Vascular Invasion: Not identified Perineural Invasion: Not identified Tumor Budding Score: Low (0-4) Type of Polyp in which Invasive Carcinoma Arose: Tubular adenoma Treatment Effect: No known presurgical therapy MARGINS Margin Status for Invasive Carcinoma: All margins negative for invasive carcinoma Closest Margin(s) to Invasive Carcinoma: Proximal Distance from Invasive Carcinoma to Closest Margin: 4.5 cm Distance from Invasive Carcinoma to Distal Margin: Not applicable Margin Status for Non-Invasive Tumor: All margins negative for high-grade dysplasia / intramucosal carcinoma and low-grade dysplasia REGIONAL LYMPH NODES Regional Lymph Node Status: : All regional lymph nodes negative for tumor Number of Lymph Nodes Examined: 19 Tumor Deposits: Not identified pTNM CLASSIFICATION (AJCC 8th Edition) Reporting of pT, pN, and (when applicable) pM categories is based on information available to the pathologist at the time the report is issued. As per the AJCC (Chapter 1, 8th Ed.) it is the managing physician's responsibility to establish the final pathologic stage based upon all pertinent information, including but potentially not limited to this pathology report. pT Category: pTis pN Category: pN0 05/26/2024 2:55 PM CDT [facility] Embedded Images 05/26/2024 2:55 PM CDT [facility] Biopsy, Excision ASCENDING COLON STRUCTURE / Unknown 05/24/2024 11:53 AM CDT 05/24/2024 1:25 PM CDT Comment:Pre-op diagnosis: Tubulovillous adenoma of colon us Becca Miles MD LAB - PATHOLOGY/CYTOLOGY O RDERABLES Final Result [facility] PATHOLOGY LAB [address] [phone] * ETT LINE PERFORMABLE (05/24/2024 9:45 AM CDT) Narrative Chin Zimmerman, REJI - 05/24/2024 9:45 AM CDT Chin Zimmerman CAA 05/24/2024 9:47 AM Endotracheal Tube Placement: Patient Location: OR. Intubation Event Date/Time: 05/24/2024 9:09 AM Procedure: intubation ([id number]) Procedure Section: Sedation: under general anesthesia. Indications for Airway Management: anesthesia Induction: standard IV Patient Position: supine Mask Ventilation: easy with oral airway. Blade Type: Erica Blade Size: 4 Laryngoscopy View: grade 1 (full cords) Intubation Adjuncts: stylet Tube: endotracheal tube Placement: oral Tube type: cuff - inflated Tube Size (MM): 8 Depth of Insertion (CM): 21 Measured From: lips Cuff volume (mL): 7 Cuff Inflated With: air Number of Attempts: 1. Placement Verified By: direct visualization, bilateral breath sounds, chest auscultation and CO2 monitor Tube secured with: adhesive tape. Dentition unchanged? Yes Difficult Airway? No. Procedure Start Time: 05/24/2024 9:09 AM. Staff Section Anesthesia Provider: Chin Zimmerman CAA, Performed the procedure us Ashley Saucedo MD GENERAL ANESTHESIA ORDERABLES Final Result * TYPE + SCREEN PANEL (05/24/2024 8:02 AM CDT) Only the most recent of2 resultswithin the time period is included. [facility] Antibody Screen NEG 8:49 AM CDT [facility] ABO Rh A POS 05/24/2024 8:49 AM CDT [facility] Blood Bank BLOOD SPECIMEN / Unknown Line Draw / Unknown 05/24/2024 8:02 AM CDT 05/24/2024 8:06 AM CDT us Becca Miles MD LAB - BLOOD BANK ORDERABLE S Final Result [facility] [address] [place] [address], [place] [phone] * CBC W/O DIFFERENTIAL (05/04/2024 1:16 PM [facility]) WBC 6.5 4.0 - 10.7 x10E9/L 05/04/2024 1:38 PM [facility] RBC Count 4.30 4.30 - 5.80 x10E12/L 05/04/2024 1:38 PM [facility] Hemoglobin 13.3 13.3 - 17.5 g/dL 05/04/2024 1:38 PM [facility] Hematocrit 41.6 38.7 - 51.1 % 05/04/2024 1:38 PM [facility] MCV 96.7 80.0 - 98.0 fL 05/04/2024 1:38 PM [facility] MCH 30.9 26.7 - 33.6 pg 05/04/2024 1:38 PM [facility] MCHC 32.0 31.7 - 36.3 g/dL 05/04/2024 1:38 PM [facility] RDW-CV 14.6 11.3 - 14.8 % 05/04/2024 1:38 PM [facility] Platelet Count 194 150 - 420 x10E9/L 05/04/2024 1:38 PM [facility] MPV 9.7 7.8 - 11.4 fL 05/04/2024 1:38 PM [facility] Blood BLOOD SPECIMEN / Unknown Lab Venipuncture / Unknown 05/04/2024 1:16 PM [facility] 05/04/2024 1:31 PM [facility] us Becca Miles MD LAB - HEMATOLOGY ORDERABLE S Final Result Performing Organization Address City/State/[facility] Co de Phone Number [facility] [address] [place] [address], [facility] [phone] * CT Abdomen Pelvis W Contrast (05/04/2024 10:47 AM [facility]) Anatomical Region Laterality Modality Abdomen, Pelvis Computed Tomogra phy 05/04/2024 11:4 1 AM [facility] Impressions 05/04/2024 11:47 AM [facility] IMPRESSION: *Mild dependent atelectasis noted in the lungs associated with air trapping could suggest a small airway disease or aspiration. *Cholelithiasis without acute cholecystitis. *Multiple nonobstructing bilateral renal stones is seen. In addition there are a few renal cysts in both kidneys. *Colonic diverticulosis without evidence of acute diverticulitis. > Interpreting Provider: Tutu Saenz MD on 05/04/2024 11:47 AM Narrative 05/04/2024 11:47 AM [facility] PROCEDURE: CT ABDOMEN PELVIS W CONTRAST DATE/TIME OF EXAM: 05/04/2024 10:47 AM CLINICAL INFORMATION: None relevant/not provided if blank. 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 TECHNIQUE: CT of the abdomen and pelvis was performed following intravenous contrast utilizing standard protocol. CT dose reduction technique was used, including Automated Exposure Control. CONTRAST: IOPAMIDOL 76 % IV SOLN:100 mL FINDINGS: Lung bases: Mild atelectasis and groundglass opacities along with air trapping noted in the visualized lower lobes of both lungs. Hepatobiliary system: Liver normal morphology. No biliary dilation seen. Gallbladder: Cholelithiasis without evidence of acute cholecystitis. Spleen: Normal. Pancreas: Normal. Kidneys/Bladder: Multiple nonobstructing bilateral renal stones are seen, in the right side largest cyst on measures approximately 5 mm. In the left side stones are smaller and measures up to 3 mm. No associated hydronephrosis. A few simple cysts are seen in both kidneys, largest a cyst is seen in the right kidney measures 3.5 cm. Adrenal Glands: Normal. Gastrointestinal: Stomach and small bowel loops are unremarkable. Colonic diverticulosis noted without evidence of acute diverticulitis. Appendix: Normal Pelvic Organs: Normal. Peritoneal cavity: Normal. Vascular: Calcified atherosclerotic plaques noted in the aorta and branches. Bones: Degenerative changes are noted in the lower thoracic spine. Minimal changes are also seen in the lumbar spine. No focal bony lesions is seen. Procedure Note Tutu Saenz MD - 05/04/2024 PROCEDURE: CT ABDOMEN PELVIS W CONTRAST DATE/TIME OF EXAM: 05/04/2024 10:47 AM CLINICAL INFORMATION: None relevant/not provided if blank. 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 TECHNIQUE: CT of the abdomen and pelvis was performed following intravenouscontrast utilizing standard protocol. CT dose reduction technique was used, including Automated ExposureControl. CONTRAST: IOPAMIDOL 76 % IV SOLN:100 mL FINDINGS: Lung bases: Mild atelectasis and groundglass opacities along with air trapping noted in the visualized lower lobes of both lungs. Hepatobiliary system: Liver normal morphology. No biliary dilation seen. Gallbladder: Cholelithiasis without evidence of acute cholecystitis. Spleen: Normal. Pancreas: Normal. Kidneys/Bladder: Multiple nonobstructing bilateral renal stones areseen, in the right side largest cyst on measures approximately 5 mm. In theleft side stones are smaller and measures up to 3 mm. No associated hydronephrosis. A few simple cysts are seen in both kidneys, largest acyst is seen in the right kidney measures 3.5 cm. Adrenal Glands: Normal. Gastrointestinal: Stomach and small bowel loops are unremarkable.Colonic diverticulosis noted without evidence of acute diverticulitis. Appendix: Normal Pelvic Organs: Normal. Peritoneal cavity: Normal. Vascular: Calcified atherosclerotic plaques noted in the aorta and branches. Bones: Degenerative changes are noted in the lower thoracic spine.Minimal changes are also seen in the lumbar spine. No focal bony lesions is seen. IMPRESSION: *Mild dependent atelectasis noted in the lungs associated with airtrapping could suggest a small airway disease or aspiration. *Cholelithiasis without acute cholecystitis. *Multiple nonobstructing bilateral renal stones is seen. In additionthere are a few renal cysts in both kidneys. *Colonic diverticulosis without evidence of acute diverticulitis. > Interpreting Provider: Tutu Saenz MD on 511:47 AM us Becca Miles MD CT ORDERABLES Final Resu lt * Endoscopy, Colon, Diagnostic (02/28/2024 1:37 PM [facility]) Report Endoscopy POC Endoscopy Department Report _ Patient Name: Virgilio Washington Procedure Date: 02/28/2024 1:37 PM Date of : 1950 Classification: Outpatient Gender: Male Ethnicity: Not or Race: Unknown _ Providers: Nigel Aguayo MD Referring MD: Mateo Anthony MD Procedure: Colonoscopy Indications: Therapeutic procedure for colon polyps Medications: Monitored Anesthesia Care. See the Anesthesia note for documentation of the administered medications. Patient Profile: 73M presents as direct access referral for colonoscopy w/ polypectomy/EMR. Recent exam 12/2023 at OSH: 2 polyps removed (TAs), 10 mm prox AC polyp (one fold distal to ICV) not removed (biopsies +TVA), and 25 mm TVC polyp tattooed and not removed (biopsies +TA). Description of Procedure: After I obtained informed consent, the scope was passed under direct vision. Throughout the procedure, the patient's blood pressure, pulse, and oxygen saturations were monitored continuously. The Colonoscope was introduced through the anus and advanced to the terminal ileum. The colonoscopy was performed without difficulty. The patient tolerated the procedure well. The quality of the bowel preparation was evaluated using the BBPS ([place] Bowel Preparation Scale) with scores of: Right Colon = 2 (minor amount of residual staining, small fragments of stool and/or opaque liquid, but mucosa seen well), Transverse Colon = 2 (minor amount of residual staining, small fragments of stool and/or opaque liquid, but mucosa seen well) and Left Colon = 2 (minor amount of residual staining, small fragments of stool and/or opaque liquid, but mucosa seen well). The total BBPS score equals 6. The quality of the bowel preparation was fair. Findings: The examined portion of the terminal ileum was normal appearing. A 60 mm flat ill-defined polyp was found along the cecum and proximal ascending colon, involving one of the lips of the ileocecal valve and extending over several folds. The lesion demonstrated a broad area of mucosal surface effacement with contact bleeding, suspicious for high risk pathology. Targeted biopsies were obtained with a cold forceps for histology. A tattoo via injection of Spot (carbon black) was placed just distal (anal side) to the lesion. A 16 mm polyp was found in the ascending colon. The polyp was Caryn classification IIa (superficial, elevated). Preparations were made for mucosal resection. Eleview was injected to raise the lesion. Snare mucosal resection was performed. Resection and retrieval were complete. Resected tissue margins were examined and clear of polyp tissue. A 20 mm polyp was found in the ascending colon. The polyp was Caryn classification IIa (superficial, elevated). Preparations were made for mucosal resection. Eleview was injected to raise the lesion. Piecemeal mucosal resection using a snare was performed. Resection and retrieval were complete. Resected tissue margins were examined and clear of polyp tissue. To prevent bleeding after the polypectomy, two hemostatic clips were successfully placed (DuraClip, MR conditional). There was no bleeding at the end of the procedure. Two sessile polyps were found in the transverse colon. The polyps were 8 to 10 mm in size. These polyps were removed with a cold snare. Resection and retrieval were complete. A 30 mm polyp was found in the transverse colon, adjacent to a previous tattoo site. The polyp was Caryn classification IIa (superficial, elevated). Preparations were made for mucosal resection. Eleview was injected to raise the lesion. Piecemeal mucosal resection using a snare was performed. Resection and retrieval were complete. Resected tissue margins were examined and clear of polyp tissue. To prevent bleeding after the polypectomy, three hemostatic clips were successfully placed (DuraClip, MR conditional). There was no bleeding at the end of the procedure. Multiple other small polyps were present throughout the colon, not removed at this time due to need for large specimen retrieval, prolonged procedure duration and suboptimal bowel preparation quality. Scattered medium-mouthed diverticula were found in the sigmoid colon. Estimated Blood Loss: Estimated blood loss was minimal. Complications: No immediate complications. Impression: - One 60 mm flat ill-defined polyp along the cecum and proximal ascending colon, involving one of the lips of the ileocecal valve and extending over several folds, including broad area of mucosal surface effacement with contact bleeding suspicious for high risk pathology. Targeted biopsies obtained. Tattoo placed just distal (anal side) to the lesion. - Two 16-20 mm polyps in the ascending colon, removed via EMR followed by endoclip placement x2 at the largest resection site. - Two 8-10 mm polyps in the transverse colon, removed with a cold snare. - One 30 mm polyp in the transverse colon, adjacent to a previous tattoo site, removed via EMR followed by endoclip placement x3. - Multiple other small polyps throughout the colon, not removed at this time due to need for large specimen retrieval, prolonged procedure duration and suboptimal bowel preparation quality. - Left sided diverticulosis. Moderate Sedation: . Recommendation: - Monitor for fevers, bleeding, pain. - Resume previous diet as tolerated. - Hold any anticoagulant medications (blood thinners) for 2 days. Resume rest of home medications today. - Follow-up pathology / biopsy results. Further management accordingly. - Follow-up with Colorectal Surgery to discuss resection of cecum and proximal ascending colon lesion pending today's biopsy results. - Repeat Colonoscopy in 6 months with an extended bowel preparation at the time. - Further evaluation by Genetics Counselor to rule out underlying hereditary / genetic disorder. - Early colorectal cancer screening of first degree relatives via Colonoscopy. - The potential complications and concerning symptoms/findings, including but not limited to early or delayed fevers, infection, pain, bleeding, perforation, were discussed with the patient/caregiver. Emergency contact information was provided. Attending Participation: I personally performed the entire procedure. Procedure Code(s): --- Professional --- 25971, Colonoscopy, flexible; with endoscopic mucosal resection 78482, 59, Colonoscopy, flexible; with removal of tumor(s), polyp(s), or other lesion(s) by snare technique 92976, 59, Colonoscopy, flexible; with biopsy, single or multiple 74070, 59, Colonoscopy, flexible; with directed submucosal injection(s), any substance Diagnosis Code(s): --- Professional --- D12.0, Benign neoplasm of cecum D12.2, Benign neoplasm of ascending colon D12.3, Benign neoplasm of transverse colon (hepatic flexure or splenic flexure) K57.30, Diverticulosis of large intestine without perforation or abscess without bleeding CPT copyright 2021 [employer]. All rights reserved. The codes documented in this report are preliminary and upon house piping inspector review may be revised to meet current compliance requirements. Nigel Aguayo MD 02/28/2024 4:32:43 PM Note Initiated On: 02/28/2024 1:37 PM Number of Addenda: [address] [id number] [facility] [employer] 02/28/2024 1:37 PM [facility]ER us Nigel Aguayo MD GI PROCEDURE ORDERAB LES Edited Result - Final [facility] [employer] from Last 3 Months or Most Recently Relevant to Health Maintenance Insurance MEDICARE [facility] Advance Directives Documents on File Type Date Recorded Patient [place] Expl anation Adv Directive/Living Will/POA 05/31/2024 10:36 AM * Full Code (Latest Code Status on File) Date Activated Date Inactivated Comments 05/24/2024 12:46 PM 05/26/2024 6:40 PM Care Teams Water System Operator Relationship Specialty Start Date End Date Mana Salmon [address] [place] [address] [phone] PCP - General 03/23/24
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
--- OUTSIDE RECORDS SUMMARY | 2024-08-01 08:56 | XMS_ITS | Clinical Summary ---
Author Organization [facility] Address [address] [place] [id number] Care Team Providers Care Senior Information Developer Name Role Phone Arturo Stovall MD Unavailable [phone] No, Physician Primary Care Provider [phone] Allergies No known active allergies Medications predniSONE (DELTASONE) 10 mg tablet Take by mouth. Activ e tiotropium bromide 2.5 mcg/actuation mist Inhale. Active budesonide-form oterol (SYMBICORT) 160-4.5 mcg/actuation inhaler Inhale 2 puffs 2 (two) times a day. Rinse mouth with water after use to reduce aftertaste and incidence of candidiasis. Do not swallow. Active albuterol HFA (PROVENTIL HFA,VENTOLIN HFA) 90 mcg/actuation inhaler Inhale 2 puffs every 6 (six) hours as needed for wheezing. Active lisinopril-hydr oCHLOROthiazide (PRINZIDE,ZESTO RETIC) 20-25 mg per tabletIndicatio ns:hypertension Take 1 tablet by mouth daily. Active atorvastatin (LIPITOR) 40 mg tablet TAKE 1 TABLET (40 MG TOTAL) BY MOUTH NIGHTLY. 90 tablet 1 8 Active Medical History Medical History Date Comments Asthma Asthma Chronic obstructive pulmonary disease (HCC) COPD Cerebrovascular accident (CVA) (HCC) Cerebrovascular accident Family History Medical History Relation Name Comments Diabetes Other Family history of Diabetes mellitus; Relation Name Status Comments Other Social History Tobacco Use Types Packs/Day Years Used Date Smoking Tobacco: Former Cigarettes 3 50 0 06/02/1966 - 06/02/2016 Smokeless Tobacco: Current Comments:3pks x 50 yrs = 150 pack/years Alcohol Use Standard Drinks/Week Comments Yes 0 (1 standard drink = 0.6 oz pur e alcohol) Sex and Gender Information Value Date Recorded Sex Assigned at Not on file Legal Sex 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 Gender Identity Not on file Sexual Orientation Not on file Obstetrics History Last Filed Vital Signs Vital Sign Reading Time Taken Comments Blood Pressure 100/66 11/11/2016 11:53 AM CDT Pulse 80 11/11/2016 11:53 AM CDT Temperature - - Respiratory Rate 12 09/09/2016 10:5 8 AM CDT Oxygen Saturation 94% 11/11/2016 11: 53 AM CDT Inhaled Oxygen Concentration - - Weight 108.4 kg (238 lb 15.7 oz) 2021 11:10 AM CDT Height 180.3 cm (5' 10.98) 06/09/2021 11:10 AM CDT Body Mass Index 33.35 06/09/2021 11:10 AM CDT Plan of Treatment Health Maintenance Due Date Last Done Comments Colon Cancer Screening-Colonoscopy 1950 Depression Screening 1949 Fall Risk Assessment 1950 Hepatitis C Screening 1950 Hepatitis B Screening 07/05/1967 Pneumococcal vaccine 65+ (1 of 1 - PCV) 07/05/1999 Zoster Vaccine (1 of 2) 07/05/1999 Abdominal Aortic Aneurysm (A AA) Screen 2014 Well Visit 65+ 2014 Lung Cancer Screening 10/11/2024 06/28/2023 , 06/09/2021, 05/20/2020, Additional history exists Influenza Vaccine (Season Ended) 2024 DTaP/Tdap/Td Vaccine (2 - Td or Tdap) 07/07/2026 07/07/2016 Procedures Procedure Name Priority Date/Time Associated Diagnosis Comments CT LUNG CANCER SCREENING Schedule Routine, Read Routine (OP Routine) 06/28/2023 8:59 AM CDT Personal history of nicotine dependence from Last 3 Months or Most Recently Relevant to Health Maintenance Results * CT Lung Cancer Screening (06/28/2023 8:59 AM CDT) Anatomical Region Laterality Modality Chest N/A Computed Tomogra phy 06/28/2023 9:51 AM CDT Impressions 06/28/2023 9:51 AM CDT 1. LungRADS Category Suspicious - 4B . Recommend PET/CT. 2. Several new pulmonary nodules with largest located in the right lower lobe measuring 9 mm. Follow-up PET CT is suggested as malignancy is considered in the differential diagnosis. 3. Additional chronic or incidental findings as above. LungRADS Categories: 1 - Negative (no nodules, or only benign calcified or fat-containing nodules) 2 - Benign Appearance or Behavior (nodules with very low likelihood of becoming a clinically active cancer due to size or lack of growth) 3 - Probably Benign (probably benign findings-short term follow up suggested; includes nodules with a low likelihood of becoming a clinically active cancer) 4A,4B,4X - Suspicious (category 3 or 4 nodules with findings for which additional diagnostic testing and/or tissue sampling is recommended) S - Other (clinically significant or potentially clinically significant findings (non-lung cancer) C - Prior Lung Cancer (modifier for patients with a prior diagnosis of lung cancer who return to screening) Electronically signed by: Rajesh Romero II, D.O. Narrative 06/28/2023 9:51 AM CDT EXAMINATION: Lung cancer screening CT of the Chest without intravenous contrast HISTORY: Lung Cancer Screening TECHNIQUE: Low radiation dose chest protocol. No intravenous contrast. Reconstructed slice width 1.[address] Dose Index 2.29 mGy. Dose-length product 83.6 mGy-cm. COMPARISON: Multiple priors most recent dated 06/22/2022 and most distant dated 06/09/2021. FINDINGS: Lung nodules or findings of lung cancer: Right upper lobe 6 mm nodule, table position -602.1. Medial right upper lobe 5 mm nodule, table position -642.1. Right lower lobe 9 mm nodule, table position -513.1. Smoking related lung disease: emphysema Other findings: Similar chronic consolidation in the left lower lobe, table position -488.1. Mild atelectasis in the bilateral lower lobes. No pleural effusion. No endobronchial or endotracheal lesions. Thyroid is unremarkable. Mild atherosclerotic calcifications in the aorta and branch vessels. No pericardial effusion. The ascending aorta is ectatic measuring 3.9 cm. There is a pericardial effusion. No acute osseous abnormality. No suspicious lytic or sclerotic lesions. Procedure Note Rajesh Romero II, DO - 06/28/2023 EXAMINATION: Lung cancer screening CT of the Chest without intravenous contrast HISTORY: Lung Cancer Screening TECHNIQUE: Low radiation dose chest protocol. No intravenous contrast. Reconstructed slice width 1.[address] Dose Index 2.29 mGy. Dose-length product 83.6 mGy-cm. COMPARISON: Multiple priors most recent dated 06/22/2022 and most distant dated 06/09/2021. FINDINGS: Lung nodules or findings of lung cancer: Right upper lobe 6 mm nodule, table position -602.1. Medial right upper lobe 5 mm nodule, table position -642.1. Right lower lobe 9 mm nodule, table position -513.1. Smoking related lung disease: emphysema Other findings: Similar chronic consolidation in the left lower lobe, table position -488.1. Mild atelectasis in the bilateral lower lobes. No pleural effusion. No endobronchial or endotracheal lesions. Thyroid is unremarkable. Mild atherosclerotic calcifications in the aorta and branch vessels. No pericardial effusion. The ascending aorta is ectatic measuring 3.9 cm. There is a pericardial effusion. No acute osseous abnormality. No suspicious lytic or sclerotic lesions. IMPRESSION: 1. LungRADS Category Suspicious - 4B . Recommend PET/CT. 2. Several new pulmonary nodules with largest located in the right lower lobe measuring 9 mm. Follow-up PET CT is suggested as malignancy is considered in the differential diagnosis. 3. Additional chronic or incidental findings as above. LungRADS Categories: 1 - Negative (no nodules, or only benign calcified or fat-containing nodules) 2 - Benign Appearance or Behavior (nodules with very low likelihood of becoming a clinically active cancer due to size or lack of growth) 3 - Probably Benign (probably benign findings-short term follow up suggested; includes nodules with a low likelihood of becoming a clinically active cancer) 4A,4B,4X - Suspicious (category 3 or 4 nodules with findings for which additional diagnostic testing and/or tissue sampling is recommended) S - Other (clinically significant or potentially clinically significant findings (non-lung cancer) C - Prior Lung Cancer (modifier for patients with a prior diagnosis of lung cancer who return to screening) Electronically signed by: Pavan Leitman II, D.O. Arturo Stovall MD IMG CT PROCEDURES Final Result from Last 3 Months or Most Recently Relevant to Health Maintenance Insurance MEDICARE [employer] [place] [facility] [employer] [place] MEDICARE [employer] [facility] MEDICARE [facility] Care Teams Senior Information Developer Relationship Specialty Start Date End Date No, Physician PCP - General 06/22/23 [place] [id number] [address] Consulting Physician Pulmonary Disease 06/22/22
--- OUTSIDE RECORDS SUMMARY | 2024-08-01 08:56 | XMS_ITS | Referral Summary ---
Author Organization [facility] Address [address] [place] [address] Care Team Providers Care Fishing Tool Operator Name Role Phone Arturo Stovall MD Unavailable [phone] No, Physician Primary Care Provider [phone] Allergies No known active allergies Medications predniSONE [...] MOUTH NIGHTLY. 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 Gender Identity Not on file Sexual Orientation [...] 06/09/2021 11:10 AM CDT Plan of Treatment Not on file Procedures Procedure Name Priority Date/Time Associated Diagnosis [...] to screening) Electronically signed by: Rajesh Romero II D.OVeronica Arturo Stovall MD IMG CT PROCEDURES Final Result from Last 3 Months or Most Recently Relevant to Health Maintenance Insurance MEDICARE COUNTS INCLUDE 234 BEDS AT [facility] Care Teams Fishing Tool Operator Relationship Specialty Start Date End Date No, Physician PCP - General 06/22/23 [place] [id number] [address] Consulting Physician Pulmonary Disease 06/22/22
== END 2024-08-01 08:45 | disposition home or self-care (01) ==
PROVIDERS: PCP Nurse Practitioner Family; Visit Provider Internal Medicine Cardiovascular Disease
DX: M53.80 Other specified dorsopathies, site unspecified (principal); I10 Essential (primary) hypertension; I70.222 Atherosclerosis of native arteries of extremities with rest pain, left leg; G47.30 Sleep apnea, unspecified; J44.9 Chronic obstructive pulmonary disease, unspecified; R93.0 Abnormal findings on diagnostic imaging of skull and head, not elsewhere classified
CPT/HCPCS: 93925

== ENCOUNTER 2024-08-01 14:14 | Outpatient (CLI) | payer MEDICARE, SELFPAY ==
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
== END 2024-08-01 14:15 | disposition home or self-care (01) ==
LOC: MICIMG 14:16
PROVIDERS: PCP Nurse Practitioner Family; Visit Provider Psychiatry & Neurology Neurology
DX: G30.9 Alzheimer's disease, unspecified (principal); Z87.828 Personal history of other (healed) physical injury and trauma; F02.80 Dementia in other diseases classified elsewhere, unspecified severity, without behavioral disturbance, psychotic disturbance, mood disturbance, and anxiety; R93.0 Abnormal findings on diagnostic imaging of skull and head, not elsewhere classified
CPT/HCPCS: 70551

== ENCOUNTER 2024-08-29 07:09 | Outpatient (CLI) | payer MEDICARE, SELFPAY ==
--- NOTE | 2024-08-29 | ECHO_ITS ---
Patient Info Name: Virgilio Washington Age: 74 years : 1950 Gender: Male Ht: 72 in Wt: 232 lbs BSA: 2.34 m2 HR: 63 bpm BP: 125 / 80 mmHg Technical Quality: Fair Exam Date: 08/29/2024 8:21 AM Patient Status: O Admit Date: 08/29/2024 Exam Type: CA echo doppler color flow Complete two-dimensional, color flow and Doppler transthoracic echocardiogram is performed. Staff Referring Physician: Gregory Denny MD Tug Captain: Miesha Gaston Attending Provider: Gregory Denny MD Summary 1. Complete two-dimensional, color flow and Doppler transthoracic echocardiogram is performed. 2. Left ventricular systolic function is normal, estimated at 55-60. 3. There is no increased left ventricular wall thickness. 4. The left ventricular diastolic function is grade I diastolic dysfunction. 5. Right ventricular chamber dimension is normal. 6. Right ventricular systolic function is normal. 7. PASP cannot be calculated because of insufficient TR jet. 8. Normal inferior vena cava with >50% collapse upon inspiration consistent with normal right atrial pressure, 3 mmHg. Left Ventricle Left ventricular chamber dimension is normal. Left ventricular systolic function is normal, estimated at 55-60. There is no increased left ventricular wall thickness. Left ventricular septal wall motion is normal. The left ventricular diastolic function is grade I diastolic dysfunction. Right Ventricle Right ventricular chamber dimension is normal. Right ventricular systolic function is normal. Left Atria Left atrial chamber dimension is normal. Right Atria Right atrial chamber dimension is normal. Aortic Valve The aortic valve is trileaflet. There is no aortic valve sclerosis. There is no aortic valve stenosis. There is no aortic valve regurgitation. Pulmonic Valve The pulmonic valve is normal. There is no pulmonic valve stenosis. There is no pulmonic regurgitation. Mitral Valve The mitral valve has normal leaflets. There is no mitral valve stenosis. There is no mitral valve regurgitation. Tricuspid Valve The tricuspid valve leaflets are normal. There is no significant tricuspid valve stenosis. There is no tricuspid valve regurgitation. PASP cannot be calculated because of insufficient TR jet. Pericardium/Pleural The pericardium appears normal. There is no pericardial effusion. Inferior Vena Cava Normal inferior vena cava with >50% collapse upon inspiration consistent with normal right atrial pressure, 3 mmHg. Aorta The aortic root size at the sinus of Valsalva is normal. The prox ascending aorta size is normal. Left Ventricular Outflow Tract Name Value Normal LVOT 2D LVOT Diameter 2.0 cm LVOT Doppler LVOT Peak Velocity 109 cm/s LVOT Peak Gradient 5 mmHg LVOT Mean Gradient 2 mmHg LVOT VTI 27 cm LVOT Stroke Volume 84 ml LVOT CO 5.8 l/min LVOT CI 2.5 l/min/m2 Pulmonic Valve Name Value Normal RVOT Doppler RVOT Peak Velocity 48 cm/s RVOT Peak Gradient 1 mmHg PV Doppler PV Peak Velocity 83 cm/s PV Peak Gradient 3 mmHg Mitral Valve Name Value Normal MV Diastolic Function MV E Peak Velocity 85 cm/s MV A Peak Velocity 97 cm/s MV E/A 0.9 MV Decel Time (PW) 258 ms MV Annular TDI MV E/e' (Septal) 8.4 MV E/e' (Lateral) 6.1 MV E/e' (Average) 7.3 Tricuspid Valve Name Value Normal Estimated PAP/RSVP RA Pressure 3 mmHg <=5 Aortic Valve Name Value Normal AV Doppler AV Peak Velocity 122 cm/s AV Peak Gradient 6 mmHg AV Area (Cont Eq Bradly) 2.8 cm2 AV DI (Bradly) 0.89 AV Regurgitation 2D LVOT Area 3.2 cm2 Ventricles Name Value Normal LV Dimensions 2D/MM LVOT Diameter 2.0 cm LV Fractional Shortening/Ejection Fraction 2D/MM LV Diastolic Volume (4C MOD) 116 ml LV EF (4C MOD) 61 % LV Diastolic Volume (2C MOD) 113 ml LV EF (2C MOD) 63 % LV Diastolic Volume (BP MOD) 116 ml 62-150 LV Diastolic Volume Index (BP MOD) 50 ml/m2 34-74 LV Systolic Volume (BP MOD) 45 ml 21-61 LV Systolic Volume Index (BP MOD) 19 ml/m2 11-31 LV EF (BP MOD) 62 % 52-72 LV Diastolic Length (4C) 8.8 cm LV Systolic Length (4C) 7.1 cm LV Stroke Volume (4C MOD) 70 ml Atria Name Value Normal LA Dimensions LA Volume (4C A-L) 49 ml LA Volume (BP A-L) 52 ml RA Dimensions RA Systolic Major Bett[place]f Length (4C) 5.4 cm 2.1-2.7 RA Area (4C) 16.5 cm2 <=18.0 Report Signatures
--- NOTE | 2024-08-29 | EST_ITS ---
Patient Info Name: Virgilio Washington Age: 74 years : 1950 Gender: Male Ht: 72 in Wt: 232 lbs BSA: 2.34 m2 HR: 58 bpm BP: 138 / 66 mmHg Exam Date: 08/29/2024 7:15 AM Patient Status: O Admit Date: 08/29/2024 Exam Type: CA stress masha w NM A regadenoson stress test was performed. Staff Referring Physician: Gregory Denny MD Attending Provider: Gregory Denny MD Exercise Technologist: Susie Lawson Exercise Physician: Jacinto Schwartz DO Summary 1. 1. Negative lexiscan stress test for ischemic ST changes by ECG criteria. 2. 2. Stable hemodynamics throughout the test. 3. 3. Nuclear scan to follow and will be reported separately. Please correlate with it. 4. 4. Patient informed of the above results. Protocol: Lexiscan Stress ECG Details Stage: REST Duration (min): 1 min : 35 sec HR (bpm): 62 SBP (mmHg): 138 DBP (mmHg): 66 Stage: REST Duration (min): 9 min : 42 sec HR (bpm): 60 SBP (mmHg): 138 DBP (mmHg): 66 Stage: STAGE 1 Duration (min): 1 min : 0 sec HR (bpm): 57 SBP (mmHg): 132 DBP (mmHg): 61 Stage: RECOVERY Duration (min): 1 min : 0 sec HR (bpm): 71 SBP (mmHg): 132 DBP (mmHg): 61 Stage: RECOVERY Duration (min): 2 min : 0 sec HR (bpm): 75 SBP (mmHg): 132 DBP (mmHg): 61 Stage: RECOVERY Duration (min): 3 min : 0 sec HR (bpm): 67 SBP (mmHg): 117 DBP (mmHg): 61 Stage: RECOVERY Duration (min): 3 min : 34 sec HR (bpm): 69 SBP (mmHg): 117 DBP (mmHg): 61 Rest HR: 60 bpm Peak HR: 75 bpm Rest Sys BP: 138 mmHg Peak Sys BP: 132 mmHg Max Pred HR: 145 bpm % Max Pred HR: 52 % Target HR: 123 bpm Max RPP: 9,900 bpm*mmHg Termination Reason: Completed protocol Cardiac Symptoms: Shortness of breath Total Time: 1 min : 0 sec Rest [place] BP: 66 mmHg Peak [place] BP: 61 mmHg Total Dose: 0.4 mg Resting ECG Sinus rhythm. Stress ECG No ST changes. Arrhythmias None. Report Signatures
--- NOTE | ~2024-08-29 | NM_ITS ---
EXAMINATION: NM masha stress w perfusion DATE: 08/29/2024 11:18 INDICATION: Essential hypertension TECHNIQUE: Rest images were obtained following intravenous administration of 10.6 mCi Tc99m tetrofosm in (Myoview). The patient was infused intravenously with Lexiscan (Regadenoson). Then, 32 mCi Tc99m t etrofosmin (Myoview) was administered intravenously, and stress images were obtained. Post stress lyle ging was obtained initially in the supine position with repeat post stress images obtained in the pro ne position. Data was reconstructed into short axis and horizontal and vertical long axis SPECT image s. Gated SPECT images were also obtained. COMPARISON: None. FINDINGS: There is likely artifactual decreased activity along portions of the inferior and septal wa lls on the rest and stress imaging obtained in the supine position which normalizes on the post stres s imaging obtained in the prone position. No definitive perfusion defects to suggest ischemia or infa rction. There is normal left ventricular chamber size, wall motion and ejection fraction. Left ventr icular ejection fraction measures >70%. IMPRESSION: 1. Normal myocardial perfusion on post stress imaging obtained in the prone position. 2. Left ventricular ejection fraction measuring >70%. Reviewed, dictated and finalized at location B. IMPRESSION: 1. Normal myocardial perfusion on post stress imaging obtained in the prone pos ition. 2. Left ventricular ejection fraction measuring >70%.
--- OUTSIDE RECORDS SUMMARY | 2024-08-29 07:12 | XMS_ITS | Encounter Summary ---
Author Organization [facility] Address [address] [place] [address] Care Team Providers Care Termite Helper Name Role Phone Mana Salmon Primary Care Provider [phone] Encounter Details Date Type Department Care Team (Late st Contact Info) Description 08/28/2024 Orders Only [facility] - [address] [facility], [place] [address] Braulio Contreras RN Polyp of colon, unspecified part of colon, unspecified type Social History Tobacco Use Types Packs/Day Years Used Date Smoking Tobacco: Former Cigarettes Q uit: 2017 Smokeless Tobacco: Never Alcohol Use Standard Drinks/Week Comments Yes 24 [...] care, and heating? Not very hard 05/24/2024 [facility] of Occupat ional Health - Occupational Stress [...] any time in the past 12 m [facility], were you homeless or living in a m[facility] (including now)? 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 Answer Date of Assessment Author No 05/24/2024 6:00 PM Radha Beck RN * Is person blind or have serious difficulty seeing? Answer Date of Assessment Author No 05/24/2024 6:00 PM Radha Beck RN * Does person have serious difficulty walking/climbing stairs? Answer Date of Assessment Author No 05/24/2024 6:00 PM Radha Beck RN * Does person have difficulty dressing/bathing? Answer Date of Assessment Author No 05/24/2024 6:00 PM Radha Beck RN * Does person have difficulty doing errands alone? Answer Date of Assessment Author No 05/24/2024 6:00 PM Radha Beck RN documented as of this encounter Mental Status * Does person have difficulty concentrating/remembering/making decisions? Answer Entry Date Author No 05/24/2024 6:00 PM CDT Radha Alford RN documented in this encounter Plan of Treatment Upcoming Encounters Date Type Department Care Team (Latest Contact Info) Description 09/06/2024 10:00 AM CDT Hospital Encounter [facility] [address] [place] [phone] Nigel Holloway MD [address] [place] [address] [address] [place] [phone] Surgery General 09/06/2024 10:00 AM CDT - 09/06/2024 11:00 AM CDT Surgery [facility] [address] [place] [phone] Nigel Holloway MD [address] [place] [address] [address] [place] [phone] COLONOSCOPY DIAGNOSTIC 09/19/2024 8:45 AM CDT Office Visit [facility] - General Surgery [address] [place] [address], [place] [phone] Becca Miles MD [address] [place] [phone] Scheduled Procedures Name Priority Associated Diagnoses Date/Ti me COLONOSCOPY DIAGNOSTIC Polyp of colon, unspecified part of colon, unspecified type 09/06/2024 10:00 AM CDT documented as of this encounter Visit Diagnoses Diagnosis Polyp of colon, unspecified part of colon, unspecified type- Primary Polyp of colon, unspecified part of colon, unspecified type documented in this encounter Care Teams Termite Helper Relationship Specialty Start Date End Date Mana Salmon [address] [place] [phone] PCP - General 03/23/24 documented as of this encounter
--- OUTSIDE RECORDS SUMMARY | 2024-08-29 07:12 | XMS_ITS | Clinical Summary ---
Author Organization [facility] Address [address] [place] [address] Care Team Providers Care Garden Equipment Mechanic Name Role Phone Leonelalara Mana Primary Care Provider Source Comments [facility],non-owned Affiliates and Associated Physician Practices is amultiple site organization consisting of ambulatory clinics and hospital sitesin [place], [place], [place] and [place]. This disclosure is being madepursuant to the Care Everywhere program and may not contain all information available regarding this patient. Last updated 17.[employer] Allergies No known active allergies Medications * [...] (one) tablet by mouth once daily Active Boswellia-Gluco samine-Vit D (OSTEO BI-FLEX ONE PER DAY PO) Acti ve albuterol HFA (Proventil; Ventolin; Proair) 108 (90 Base) MCG/ACT inhaler INHALE 2 PUFFS BY MOUTH EVERY SIX HOURS NEEDED Active albuterol (Proventil;Vent naz) (2.5 MG/3ML) 0.083% nebulizer solution INHALE 1 VIAL EVERY 4-6 HRS NEEDED 4 Active atorvastatin (Lipitor) 40 MG tablet atorvastatin 40 mg tablet 3 Active Glucosamine HCl 500 MG glucosamine HCl unspecified unspecified Active Multiple Vitamin (Multi-Vitamins ) TABS multivitamin tablet Active clobetasol (Temovate) 0.05 % solution Apply to affected area at bedtime 5 Active acetaminophen (Tylenol) 500 MG tablet Take 2 (two) tablets by mouth every 6 hours as needed for Fever or Pain Maximum allowable Acetaminophen amount = 4 Grams (4000 mg) / 24 hours. 30 tablet 5 Active oxyCODONE, immediate release, (Roxicodone) 5 MG tabletIndicatio ns:High grade dysplasia in colonic adenoma Take 1 (one) tablet by mouth every 4 hours as needed 8 tablet 05/26/2024 2:36 PM CDT 5 Active Additional Information Patient not taking.Reason: Patient adjusted, Reported on 06/15/2024 escitalopram (Lexapro) 10 MG tablet Take 1 (one) tablet by mouth once daily 5 Active memantine (Namenda Titration Stephon) kit TAKE DIRECTED PER PACKAGE 5 Active polyethylene glycol (Golytely) solutionIndicat ions:Polyp of colon, unspecified part of colon, unspecified type Take 8,000 mL by mouth as directed Please see instructions given to you for 2 day bowel prep. 8000 mL 5 Active Active Problems Problem Noted Date Diagnosed Date High grade dysplasia in colonic adenoma 05/25/19 25 Encounters Date Type Department Care Team Description 08/28/2024 [place] [facility] [place] [address] [place] [phone] Braulio Contreras, RN Appointment (procedure to confirm) 08/28/2024 Orders Only [facility] [place] [address] [place] [phone] Braulio Contreras, RN Polyp of colon, unspecified part of colon, unspecified type 06/15/2024 12:00 PM CDT Office Visit [facility] - General Surgery [address] [facility], [place] [address] Becca Miles MD Malignant neoplasm of ascending colon (HCC) (Primary Dx) 06/15/2024 Travel 06/01/2024 Travel from Last 3 Months Social History [...] care, and heating? Not very hard 05/24/2024 [facility] [place] of Occupat ional Health - Occupational Stress [...] any time in the past 12 m [facility], were you homeless or living in a [facility] (including now)? No 05/24/2024 Sex and Gender Information Value Date Recorded Sex Assigned at Not on file Legal Sex Male 12:17 PM BARISTA Gender Identity Not on file Sexual Orientation [...] Description 09/06/2024 10:00 AM CDT Hospital Encounter [facility] [address] [place] [address] Nigel Holloway MD [address] [place] [address] [address] [place] [phone] Surgery General 09/06/2024 10:00 AM CDT - 09/06/2024 11:00 AM CDT Surgery [facility] [address] [place] [phone] Nigel Holloway MD [address] [place] [address] [address] [place] [phone] COLONOSCOPY DIAGNOSTIC 09/19/2024 8:45 AM CDT Office Visit [facility] - General Surgery [address] [facility], [place] [phone] Becca Miles MD [address] [facility] [address] [place] [address] Scheduled Procedures Name Priority Associated Diagnoses Date/Ti [...] VACCINE (1 of 2) 07/05/1999 COVID-19 VACCINE ( - 2023-2 5 season) 2023 DEPRESSION SCREENING 03/01/2024 Respiratory [...] Procedure Name Priority Date/Time Associated Diagnosis Comments ENDOSCOPY, COLON, DIAGNOSTIC Routine 02/28/2024 1:37 PM BARISTA from Last 3 Months or Most Recently Relevant to Health Maintenance Results * Endoscopy, Colon, Diagnostic (02/28/2024 1:37 PM BARISTA) Report Endoscopy POC Endoscopy Department Report _ [...] bowel preparation was evaluated using the BBPS ([place] Bowel Preparation Scale) with scores of: Right [...] entire procedure. Procedure Code(s): --- Professional --- 30999, Colonoscopy, flexible; with endoscopic mucosal resection 89117, 59, Colonoscopy, flexible; with removal of tumor(s), polyp(s), or other lesion(s) by snare technique 33620, 59, Colonoscopy, flexible; with biopsy, single or multiple 65108, 59, Colonoscopy, flexible; with directed submucosal injection(s), any substance Diagnosis Code(s): --- Professional --- D12.0, Benign neoplasm of cecum D12.2, Benign neoplasm of ascending colon D12.3, Benign neoplasm of transverse colon (hepatic flexure or splenic flexure) K57.30, Diverticulosis of large intestine without perforation or abscess without bleeding CPT copyright 2021 [employer]. All rights reserved. The codes documented in this report are preliminary and upon production controller review may be revised to meet current compliance requirements. Nigel Aguayo MD 02/28/2024 4:32:43 PM Note Initiated On: 02/28/2024 1:37 PM Number of Addenda: [address] PROVATION 02/28/2024 1:37 PM BARISTA us Nigel Aguayo MD GI PROCEDURE ORDERAB LES Edited Result - Final [facility] PROVATION from Last 3 Months or Most Recently Relevant to Health Maintenance Insurance MEDICARE [facility] Advance Directives Documents on File Type Date Recorded Patient Edge Grinder Machine Expl anation Adv Directive/Living Will/POA 05/31/2024 10:36 AM * Full Code (Latest Code Status on File) Date Activated Date Inactivated Comments 05/24/2024 12:46 PM 05/26/2024 6:40 PM Care Teams Garden Equipment Mechanic Relationship Specialty Start Date End Date Mana Salmon [address] [place] [address] [place] [phone] PCP - General 03/23/24
--- OUTSIDE RECORDS SUMMARY | 2024-08-29 07:12 | XMS_ITS | Encounter Summary ---
Author Organization [facility] Address [address] [facility] [place] [address] Care Team Providers Care Patient Account Specialist Name Role Phone Mana Salmon Primary Care Provider [phone] Reason for Visit * Reason Onset Date Comments Appointment 08/28/2024 procedure to con firm Encounter Details Date Type Department Care Team (Late st Contact Info) Description 08/28/2024 Telephone [facility] - [address] [place] [address] Braulio Contreras, RN Appointment (procedure to confirm) Social History Tobacco Use Types Packs/Day Years [...] care, and heating? Not very hard 05/24/2024 [facility] [place] of Occupat ional Health - Occupational Stress [...] any time in the past 12 m [facility], were you homeless or living in a correction (including now)? 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 Answer Date of Assessment Author No 05/24/2024 6:00 PM Radha Bekc RN * Is person blind or have [...] Radha Alford RN documented in this encounter Miscellaneous Notes * Telephone Encounter - Braulio Contreras, MEAGAN - 08/28/2024 3:21 PM CDT Attempted to contact patient to confirm 7.9.25 colon procedure / prep. No answer. Left VM to call me back to confirm appt. Prep ordered today. documented in this encounter Plan of Treatment Upcoming Encounters Date Type Department Care Team (Latest Contact Info) Description 09/06/2024 10:00 AM CDT Hospital Encounter [facility] [address] [place] [phone] Nigel Holloway MD [address] [place] [address] 2[address] [place] [phone] Surgery General 09/06/2024 10:00 AM CDT - 09/06/2024 11:00 AM CDT Surgery [facility] [address] [place] [phone] Nigel Holloway MD [address] [place] [address] [place] [phone] COLONOSCOPY DIAGNOSTIC 09/19/2024 8:45 AM CDT Office Visit [facility] - General Surgery [address] [place] [address], [place] [phone] Becca Miles MD [address] [place] [phone] Scheduled Procedures Name Priority Associated Diagnoses Date/Ti me COLONOSCOPY DIAGNOSTIC Polyp of colon, unspecified part of colon, unspecified type 09/06/2024 10:00 AM CDT documented as of this encounter Visit Diagnoses Not on filedocumented in this encounter Care Teams Patient Account Specialist Relationship Specialty Start Date End Date Thilker, Mana [address] [facility] [place] [address] PCP - General 03/23/24 documented as of this encounter
--- OUTSIDE RECORDS SUMMARY | 2024-08-29 07:12 | XMS_ITS | Referral Summary ---
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
--- OUTSIDE RECORDS SUMMARY | 2024-08-29 07:12 | XMS_ITS | Clinical Summary ---
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
== END 2024-08-29 07:10 | disposition home or self-care (01) ==
PROVIDERS: PCP Nurse Practitioner Family; Visit Provider Internal Medicine Cardiovascular Disease
DX: M53.80 Other specified dorsopathies, site unspecified (principal); I70.222 Atherosclerosis of native arteries of extremities with rest pain, left leg; G47.30 Sleep apnea, unspecified; E78.5 Hyperlipidemia, unspecified; J44.9 Chronic obstructive pulmonary disease, unspecified; Z72.0 Tobacco use; R60.0 Localized edema; Z13.6 Encounter for screening for cardiovascular disorders; R06.02 Shortness of breath
CPT/HCPCS: 78452; 93017; 93306; A9502; J2785

== ENCOUNTER 2024-10-02 10:14 | Outpatient (CLI) | payer MEDICARE, SELFPAY ==
--- NOTE | ~2024-10-02 | XR_ITS ---
AP and oblique views of the SI joints CLINICAL HISTORY: Pain FINDINGS: Sacroiliac joints and hip joints are intact. No fracture or dislocation seen. Soft tissues are unremarkable. IMPRESSION: Unremarkable exam. Reviewed, dictated and finalized at location M. IMPRESSION: Unremarkable exam.
== END 2024-10-02 10:15 | disposition home or self-care (01) ==
LOC: MICIMG 10:17
PROVIDERS: Visit Provider Nurse Practitioner Family
DX: M53.3 Sacrococcygeal disorders, not elsewhere classified (principal)
CPT/HCPCS: 72202